=== PATIENT | female | born 1945 | race African-American/Black ===

== ENCOUNTER → 2017-03-22 | Outpatient (CLI) | payer OTHER | LOC: RAD 08:48 | DX: Z12.31 Encounter for screening mammogram for malignant neoplasm of breast (principal) ==

== ENCOUNTER → 2018-04-01 | Outpatient (CLI) | payer OTHER | LOC: RAD 10:49 | DX: Z12.31 Encounter for screening mammogram for malignant neoplasm of breast (principal) ==

== ENCOUNTER → 2019-04-21 | Outpatient (CLI) | payer OTHER | LOC: RAD 11:02 | DX: Z12.31 Encounter for screening mammogram for malignant neoplasm of breast (principal) ==

== ENCOUNTER 2019-08-14 08:04 | Inpatient (IN) | payer OTHER ==
[~2019-08-14] VITALS: Ht 167.6 cm; Wt 80.3 kg
[~2019-08-14 08:04] MED LIST: PANTOPRAZOLE SO40 M1 PO; VALSARTAN-HCTZ1 EACH PO; VITAMIN D32000 UNIT PO
[2019-08-14 09:53] LABS: CALCIUM 10.1 mg/dL (8.5-10.1); POTASSIUM 3.4 mmol/L (3.5-5.1)
[2019-08-14 10:01] VITALS: BP 124/78
[2019-08-14 10:48] LABS: HEMATOCRIT 44.2 % (37.0-47.0); MCH 24.3 pg (26.0-34.0); MCHC 31.7 g/dL (28.0-37.0); MCV 76.7 fL (80.0-100.0); RBC 5.77 mil/uL (4.20-5.00); RDW 15.1 % (10.5-14.5); WBC 8.3 thou/uL (4.0-11.0)
--- NOTE | 2019-08-14 12:22 | EKG ---
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
[2019-08-14] MEDS ORDERED: COLACE 100 MG100 MG PO (12:58)
[2019-08-14] MEDS ORDERED: ACETAMINOPHEN325 M1 PO (12:58)
[2019-08-14] MEDS ORDERED: OXYCODONE HCL 55 MG PO (12:58)
[2019-08-14] MEDS ORDERED: MIRALAX17 GM PO (12:58)
[2019-08-14 13:17] VITALS: BP 124/78
--- NOTE | 2019-08-18 15:27 | O ---
[facility] [place] [address] OPERATIVE REPORT Name: IWONA MARTINEZ Room #: 150-11 DIS IN M.R.#: [id number] Admission: 08/14/19 Attend Phys: Cruz Cervantes MD Discharge: 08/14/19 Date of : 45 Report #: [id number] THIS REPORT FOR: //name// CC: Cruz Travis DATE OF SERVICE: 08/14/2019 PROCEDURES PERFORMED: 1. Diagnostic laparoscopy. 2. Laparoscopic appendectomy. PREOPERATIVE DIAGNOSIS: Appendiceal mucocele. POSTOPERATIVE DIAGNOSIS: Normal appendix. SURGEON: Dr. Cervantes. LAMINATOR HAND: None. ANESTHESIA: 1. General 2. Local. COMPLICATIONS: None. SPECIMENS: Appendix, completely intact. FINDINGS: 1. No appendiceal mass. 2. No cecal mass. 3. No mass structure in the right lower quadrant appreciated. INDICATIONS FOR PROCEDURE: The patient is a very pleasant 73-year-old female, who underwent a screening colonoscopy and was found to have a bulging mass into the cecal mucosa. This region was biopsied. Pathology came back normal; however, a CT scan was obtained that did demonstrate a several centimeter possible appendiceal mucocele. The discussion was held in the clinic regarding the surgery. We did discuss the possibility of laparoscopic appendectomy versus ileocecectomy versus right hemicolectomy. The risks, benefits, and alternatives of the procedure were discussed with the patient. The risks discussed included, but were not limited to, the risk of bleeding, infection, conversion to open, damage to any intraabdominal organs, anesthesia (cardiac, pulmonary, and neurologic type complications), and . We also discussed the risk of a mucocele being benign or malignant. If that is malignant, then it did rupture and there is a potential for a disease of her abdomen and they discussed that as [facility] [address] [place] [address] OPERATIVE REPORT Name: IWONA MARTINEZ Room #: 150-11 [facility] IN Wei.Kevin.#: [id number] Admission: 08/14/19 Attend Phys: Cruz Cervantes MD Discharge: 08/14/19 Date of : 45 Report #: [id number] far as concerned about potentially rupturing it, that I would convert to open. The patient and her several family members did have the opportunity to ask questions. All questions were answered to the best of my ability. At the end of the discussion, they did wish to proceed with surgery. DESCRIPTION OF PROCEDURE: After informed consent was obtained as above, the patient was taken to the operating room and placed in the supine position. General anesthesia was induced. Preprocedure antibiotics were administered. A Moore catheter was inserted. Her anterior abdomen was prepped and draped in the usual sterile fashion and a timeout was performed. A 5-mm supraumbilical incision was made after injection of local anesthetic, a Veress needle was inserted. Pneumoperitoneum was created. The 5 mm port was passed and lighted laparoscope was inserted. The abdomen was inspected and there were no immediate gross abnormalities. Therefore, I proceeded with placement of 2 more ports. I had placed a 5 mm suprapubic port and a 5 mm left lower quadrant port. All ports were placed without difficulty and the procedure began by inspecting the right lower quadrant. The appendix was easily visualized. It was brought into the field of view and found to be completely normal. Next, the cecum was visualized and also found to be normal in appearance. The cecum was mobilized up towards the hepatic flexure. There were no masses appreciated. 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 This was soft and compressible and when you indented it, it did appear to be as one would expect for an appearance of a diverticulum. There was no mass ever identified. The small bowel was inspected and ran proximally for several feet and was found to be normal. Given the incongruent findings with the preoperative imaging and the intraoperative findings, I did decide to call my partner and discussed the case with him intraoperatively. Ultimately, we elected to proceed with a laparoscopic appendectomy. We elected for this. We could send the appendix to the pathologist and rule out any underlying appendiceal pathology. The appendectomy proceeded in the standard fashion by making a window in the mesoappendix with a [place]. A laparoscopic RAMOS blue load stapler was used to transect the appendix. The mesoappendix was transected with a white load stapler. Before firing any loads, the stapler was closely inspected and it was ensured to not have the terminal ileum or any other critical structures within a grasp of the stapler. Mesoappendix was transected. Hemostasis was present. All staple lines were intact. The appendix was passed into a laparoscopic retrieval bag and removed out of the 12 mm port site under direct visualization. There was no rupture of the appendix and there was no spillage of any enteric contents. There was no free fluid within the right lower quadrant and the right lower quadrant was hemostatic. The 12 mm port site was closed using a laparoscopic fascial closure device using 0 Vicryl in the interrupted fashion. The pneumoperitoneum was released. The port sites were hemostatic. The skin was closed using 4-0 Monocryl in an interrupted subcuticular fashion. [facility] [address] [place] [address] OPERATIVE REPORT Name: IWONA MARTINEZ Room #: 150-11 [facility] IN M.R.#: [id number] Admission: 08/14/19 Attend Phys: Cruz Cervantes MD Discharge: 08/14/19 Date of : 45 Report #: [id number] patient tolerated the procedure well. There were no adverse events throughout the course of procedure. <ELECTRONICALLY SIGNED> By: Cruz Cervantes MD 08/18/19 1527 1731 10 Cruz Cervantes MD /nt
--- NOTE | 2019-08-19 16:06 | PATH ---
[facility] [address] [place] [address] PATHOLOGY RPT PROCEDURE Name: AUBREE MORAN Room #: 150-11 DIS IN M.R.#: [id number] Admission: 08/14/19 Date of : 45 Discharge: 08/14/19 Report #: [id number] Path Case #: [id number] [facility] Accession Number: [id number] . 01 Material submitted: . appendix - APPENDIX RULE OUT MUCOCELE . 01 Clinical history: . Disease of appendix Rule out mucocele . 02 Diagnosis: Appendix, rule out mucocele, appendectomy: - Marked acute appendicitis. - Fibrous obliteration of the tip. - Negative for malignancy. (IUV/db; 08/19/2019) LBQ 08/19/2019 1112 Local . 02 Electronically signed: . Aggie Yanez MD, Pathologist NPI- [id number] . 01 Gross description: . The specimen is received in formalin, labeled "Aubree Moran, appendix" and consists of an appendix measuring 9.3 in length and ranging from 0.3 cm (tip) to 0.9 cm (near proximal margin) in diameter with mesoappendix measuring 1.5 thick. The serosa is pink-schmitz smooth with focal hemorrhage. The margin is closed with a line of alex and inked black. Sectioning reveals a dilated lumen containing light brown fecal material which becomes pinpoint at the tip. No fecaliths or gross lesions are identified. Clinical Medical Transcriptionist sections are submitted in A1. (SD; 08/15/2019) . After initial microscopic examination the remainder of the appendix is submitted in A2-A4. ([facility]; 08/18/2019) SYU/SYU 08/18/2019 1244 Local . 02 Pathologist provided ICD-10: K35.80 . 02 CPT . 740660 Specimen Comment: A courtesy copy of this report has been sent to [phone], [phone] Specimen Comment: [phone] [address] PATHOLOGY RPT PROCEDURE Name: AUBREE MORAN Room #: [address] [place] [address] IN ..#: [id number] Admission: 08/14/19 Date of : 45 Discharge: 08/14/19 Report #: [id number] Path Case #: [id number] Specimen Comment: Report sent to and Performed at: [address] [facility] [address], [place], [place] [id number] MD Kyle Cortez MD Phone: [phone] Performed at: [address] [id number] MD Aggie Yanez MD Phone: [phone]
== END 2019-08-14 14:15 | disposition home or self-care (01) | DRG 343 ==
LOC: PRE 08:04 → TBA 09:08 → PRE 10:10 → TBA 14:15
PROVIDERS: Anesthesiology; ADMIT Surgery
PROC: 0DTJ4ZZ Resection of Appendix, Percutaneous Endoscopic Approach (ICD-10-PCS; principal; 2019-08-14)
DX: K38.8 Other specified diseases of appendix (principal); I10 Essential (primary) hypertension; K21.9 Gastro-esophageal reflux disease without esophagitis; E87.6 Hypokalemia; K44.9 Diaphragmatic hernia without obstruction or gangrene; Z98.42 Cataract extraction status, left eye; Z98.41 Cataract extraction status, right eye; Z79.899 Other long term (current) drug therapy; Z80.3 Family history of malignant neoplasm of breast
CPT/HCPCS: 50010; 50101; 50249; 50386; 50455; 50555; 50558; 50739; 50740; 51489; 52265; 53307; 53310; 54022; 54118; 56462; 56524; 56525; 56526; 57092; 62110; 62900; 70005

== ENCOUNTER → 2020-04-27 | Outpatient (CLI) | payer OTHER ==
[~2020-04-27] MED LIST changes: +ACETAMINOPHEN325 M1 PO; +COLACE 100 MG100 MG PO; +MIRALAX17 GM PO; +OXYCODONE HCL 55 MG PO
== END ==
LOC: RAD 11:18
PROVIDERS: ATTEND Family Medicine
DX: Z12.31 Encounter for screening mammogram for malignant neoplasm of breast (principal)

== ENCOUNTER → 2021-05-17 | Outpatient (CLI) | payer OTHER | LOC: RAD 10:25 | PROVIDERS: ATTEND Family Medicine | DX: Z12.31 Encounter for screening mammogram for malignant neoplasm of breast (principal); N64.89 Other specified disorders of breast ==